=== PATIENT | male | born 1940 | race Caucasian/White ===

== ENCOUNTER → 2016-11-05 | Outpatient (CLI) | payer OTHER ==
[~2016-11-05] MED LIST: ACET-1256 PO; AMOX500C3 PO; ASPI81TA28 PO; ATOR-24 PO; CEPH-571 PO; CEPH500C PO; CIPR1TAB11 PO; CLOP1TAB5 PO; DOCU100C31 PO; HEPA1INJ22 SC; INSPMPNVLG; LINE1TAB2 PO; MULT-506 PO; NICO7DIS7 TD; OXYC-57 PO; OXYSR/10; PANT40TA PO; QUET1TAB30 PO
--- NOTE | 2016-11-05 17:32 | DIAGNOSTIC IMAGING REPORT ---
LEFT ANKLE 3 VIEWS CLINICAL HISTORY: Left ankle pain. Nonhealing wound. FINDINGS: 3 views of left ankle are obtained. No prior studies are available for comparison at the time of dictation. The skeletal structures are osteopenic. No fracture is seen. There is no evidence of bony erosion or periostitis. The ankle mortise is intact. No joint effusion is identified. A tiny plantar calcaneal enthesophyte is observed. There is significant soft tissue edema in the visualized left lower extremity, greatest in the pretibial soft tissues. A cutaneous defect is noted in the anterior calf, likely corresponding to the reported wound. No radiodense foreign body or subcutaneous emphysema is noted. IMPRESSION: 1. No acute bony abnormality is identified in the left ankle. 2. Osteopenia and mild degenerative change as above. 3. Soft tissue edema is noted in the left lower extremity. A wound is suggested in the pretibial soft tissues. Clinical correlation will be required. Electronically signed by: Luigi Munoz M.D. 11/05/2016 5:30 PM Dictated Date/Time: 11/05/2016 5:28 PM
== END | disposition home or self-care (01) ==
LOC: C.RAD 16:53
PROVIDERS: ATTEND Emergency Medicine
DX: M25.572 Pain in left ankle and joints of left foot (principal); S91.002A Unspecified open wound, left ankle, initial encounter; X58.XXXA Exposure to other specified factors, initial encounter

== ENCOUNTER 2016-12-25 11:07 | Emergency (ER) | payer OTHER ==
[~2016-12-25] VITALS: Ht 182.9 cm; Wt 59.1 kg
[~2016-12-25 11:07] MED LIST changes: -AMOX500C3 PO; -CEPH-571 PO; -CEPH500C PO; -CIPR1TAB11 PO; -LINE1TAB2 PO; -QUET1TAB30 PO
[2016-12-25 11:16] VITALS: TEMP 36.5; Ht 182.9 cm; Wt 59.1 kg
[2016-12-25] MEDS ORDERED: QUET1TAB30 PO (12:01)
[2016-12-25 13:50] VITALS: BP 117/80; PULSE 84; O2SAT 95
--- NOTE | 2016-12-25 20:11 | EMERGENCY ROOM VISIT NOTE ---
History Report prepared by Ambreen: Jomar Chao Under the Supervision of: Dr. Jacobo Hernández M.D. First contact with patient: 12:39 Chief Complaint: OTHER COMPLAINT Stated Complaint: LEG PAIN History of Present Illness The patient is a 76 year old male who presents to the Emergency Room with complaints of a traumatic brain injury beginning 30 years ago. The patient's power of document review attorney notes the nurse at his rehabilitation center stated the patient was disoriented. She states that the patient did not want the nurse to touch his hip. His power of document review attorney notes that the nurse called the ambulance because she was not familiar with his case. She notes that he has been fine all day, and he is able to complete simple tasks by himself. His power of document review attorney states that he is recovering from a skin graft that was performed because the patient did not have enough blood supply to his legs. She feels that he is acting completely normal at this point time. Pt denies LOC, headache, fevers, chills, diaphoresis, visual changes, neck pain, chest pain, breathing difficulties, nausea, vomiting, abdominal pain, back pain, melena, hematochezia , urinary symptoms, or other complaints. Source of History: other (power of document review attorney) Onset: 30 years ago Position: head (brain) Quality: other (traumatic) Timing: constant Review of Systems See HPI for pertinent positives and negatives. A total of ten systems were reviewed and were otherwise negative although complete ROS is somewhat difficult to assess as the patient does have baseline TBI and confusion. Past Medical & Surgical Medical Problems: (1) PVD (peripheral vascular disease) (2) TBI (traumatic brain injury) Family History No pertinent family history stated. Social History Smoking Status: Current Some Day Smoker Drug Use: none Marital Status: Occupation Status: disabled Current/Historical Medications Scheduled Acetaminophen (Tylenol), 2 TAB PO Q6 Aspirin (Aspirin Ec), 81 MG PO DAILY Atorvastatin (Lipitor), 1 TAB PO DAILY Clopidogrel Bisulfate (Plavix), 1 TAB PO DAILY Docusate Sodium (Docusate Sodium), 1 CAP PO BID Heparin Sodium (Porcine) (Heparin Sodium), 5,000 SC Q8 Insulin Aspart (novoLOG INSULIN PUMP ), 1 EA N/A UD Multivitamin (Multivitamin), 1 TAB PO DAILY Nicotine (Nicoderm Cq 7 Mg Patch), 7 MG TD DAILY Pantoprazole (Protonix), 40 MG PO DAILY Scheduled PRN Oxycodone/Acetaminophen 5MG/325MG (Percocet 5MG/325MG), 1 TABLET PO Q4H PRN for Pain Miscellaneous Medications Oxycodone HCl (Oxycontin) Quetiapine Fumarate (Seroquel), 25 MG PO Allergies Coded Allergies: No Known Allergies (Verified , 12/25/16) Physical Exam Vital Signs Date Time Temp Pulse Resp B/P Pulse Ox O2 Delivery O2 Flow Rate FiO2 12/25/16 13:50 84 20 117/80 95 Room Air 12/25/16 11:16 36.5 75 20 119/78 95 Room Air Physical Exam GENERAL: Awake, alert, interacting, well-appearing, in no acute distress HENT: Normocephalic, atraumatic. Oropharynx unremarkable. EYES: Normal conjunctiva. Sclera non-icteric. NECK: Supple. No nuchal rigidity. FROM. No JVD. RESPIRATORY: Clear to auscultation. CARDIAC: Regular rate, normal rhythm. Extremities warm and well perfused. Pulses equal. ABDOMEN: Soft, non-distended. No tenderness to palpation. No rebound or guarding. No masses. RECTAL: Deferred. MUSCULOSKELETAL: Chest examination reveals no tenderness. The back is symmetrical on inspection without obvious abnormality. There is no CVA tenderness to palpation. No joint edema. LOWER EXTREMITIES: Calves are equal size bilaterally and non-tender. No edema. No discoloration. NEURO: Normal sensorium. No sensory or motor deficits noted. SKIN: No rash or jaundice noted. Medical Decision & Procedures ED Course 1242: The patient was evaluated in room B9. A complete history and physical exam was performed. 1253: I discussed the patient's case with case management. 1330: I reevaluated the patient and discussed his exam findings. His power of document review attorney verbalized complete understanding of the discharge instructions. The patient is ready for discharge. Medical Decision The patient was evaluated. His power of document review attorney states that he is acting his normal baseline. The visiting nurse was concerned because the patient was alone. The power of document review attorney states that they have permission to allow the patient to be alone for short periods of time. The patient is resting comfortably. Office of aging was contacted. They note no significant issues at this point in time. As the patient seems to be at his baseline per his power of document review attorney and has multiple appointment set for this week with his outpatient providers I believe it is reasonable to let him go and continue his current outpatient care without any diagnostic testing here.I gave my usual and customary discussion regarding this issue. If he has any problems he will come back to the emergency from for reevaluation. Impression Primary Impression: Confusion Scribe Attestation The scribe's documentation has been prepared under my direction and personally reviewed by me in its entirety. I confirm that the note above accurately reflects all work, treatment, procedures, and medical decision making performed by me. Departure Information Dispostion Home / Self-Care Referrals Blaise Welch D.O. (PCP) Forms HOME CARE DOCUMENTATION FORM, IMPORTANT VISIT INFORMATION, WORK / SCHOOL INSTRUCTIONS Patient Instructions My [facility] Additional Instructions Continue current care and medications. Continue set appointments. Follow-up with PCP as scheduled. Return to the emergency Department for any problems.
[2017-01-13] MEDS ORDERED: CEPH-571 PO (08:00)
[2017-02-13] MEDS ORDERED: LINE1TAB2 PO (13:18)
[2017-04-15] MEDS ORDERED: AMOX500C3 PO (11:03)
[2017-06-09] MEDS ORDERED: CEPH500C PO (09:46)
== END 2016-12-25 13:52 | disposition home or self-care (01) ==
LOC: EDBD 11:07 → C.EDB 11:09
DX: R41.0 Disorientation, unspecified (principal); I73.9 Peripheral vascular disease, unspecified; F17.200 Nicotine dependence, unspecified, uncomplicated; Z87.820 Personal history of traumatic brain injury; Z79.82 Long term (current) use of aspirin; Z79.4 Long term (current) use of insulin; Z79.899 Other long term (current) drug therapy

== ENCOUNTER 2019-01-01 13:08 | Inpatient (IN) ==
--- OUTSIDE RECORDS SUMMARY | 2019-01-01 13:12 | External Medical Summary | Continuity of Care Document ---
:1940 Author Name Margareth Diaz, Provider Address Unavailable Unavailable , Care Team Providers Name Role Phone Adam [email or web address] PCP, UNKNOWN Unavailable Unavailable Problems Acquired Deformity Of A Limb (736.9) Allergies and Adverse Reactions No Known Drug Allergies (Allergy) Medications No Reported Medications Refills: 0 Procedures History of Inguinal Hernia Repair Status : Completed 24-Jan-1999 0:00 History of Hernia Repair Status: Complet ed Immunizations Influenza On: 26-Jun-2000 Plan of Treatment Planned Observations Planned Goals not documented Results No Known Results Results not documented
--- NOTE | 2019-01-01 14:08 | XRay Report ---
XR tibia fibula LT 2V HISTORY: 78 years-old Male L leg wound soft tissue wound of the left lower leg COMPARISON: Left ankle radiographs 11/05/2016 TECHNIQUE: 2 views of the left tibia and fibula FINDINGS: Demineralized appearance of the bones. No acute fracture or dislocation. Severe degenerative changes about the knee with moderate posterior arthritis of the tibiotalar joint. Cortical thickening of the proximal tibial metaphysis suggests healed fracture deformity. Indeterminate 3.8 x 2.1 cm sclerotic l esion of the mid proximal tibial metaphysis. No associated soft tissue mass or bony destruction ident ified. There is moderate soft tissue prominence about the lower leg. No opaque foreign body. IMPRESSION: 1. No acute fracture or dislocation. 2. Degenerative changes of the knee and ankle. 3. Healed remote fracture deformity about the proximal tibial metaphysis with indeterminate 3.8 x 2.1 cm sclerotic bone lesion. 4. Moderate soft tissue swelling. The above report was generated using voice recognition software. It may contain grammatical, syntax o r spelling errors. Electronically signed by: Johny Nails M.D. 01/01/2019 2:07 PM
[2019-01-01 14:18] LABS: Basophils # (auto) 0.05 K/uL (0-0.2); Basophils % (auto) 0.7 %; Eosinophils # (auto) 0.37 K/uL (0-0.5); Eosinophils % (auto) 4.9 %; Hemoglobin 12.9 g/dL (14.0-18.0); Immature Granulocytes # (auto) 0.02 K/uL (0.00-0.02); Immature Granulocytes % (auto) 0.3 %; Lymphocytes # (auto) 2.12 K/uL (1.2-3.4); Mean Corpuscular Hgb Conc 34.9 g/dL (32-36); Mean Corpuscular Volume 89.2 fL (80-100); Mean Platelet Volume 9.4 fL (7.4-10.4); Monocytes # (auto) 0.66 K/uL (0.11-0.59); Monocytes % (auto) 8.7 %; Neutrophils # (auto) 4.36 K/uL (1.4-6.5); Neutrophils % (auto) 57.4 %; Platelet Count 184 K/uL (130-400); RDW Coefficient of Variation 14.4 % (11.5-14.5); RDW Standard Deviation 47.1 fL (36.4-46.3); Red Blood Count 4.15 M/uL (4.7-6.1); White Blood Count 7.58 K/uL (4.8-10.8)
[2019-01-01] MEDS ORDERED: PIPERACILL/TAZOBAC CONSULT ACTIVE PRN (14:25)
[2019-01-01] MEDS ORDERED: PIPERACILLIN/TAZOBACTAM 4.5 GM/120 ML BAG IV ONE (14:25)
[2019-01-01] MEDS ORDERED: VANCOMYCIN CONSULT ACTIVE PRN (14:25)
[2019-01-01] MEDS ORDERED: VANCOMYCIN HCL 1,250 MG in SODIUM CHLORIDE 0.9% 500 ML IV ONE (14:25)
--- NOTE | 2019-01-01 14:29 | Emergency Department Note ---
History of Present Illness General Chief complaint: Infection, Wound Time Seen by Provider: 01/01/19 13:26 History of Present Illness 78-year-old male who presents to the emergency department via BLS ambulance for evaluation of a left leg wound. According to EMS, they were contacted by the Office of Aging from a home visit where they found the patient in a home without any food or medications. They then noticed that the patient had a large wound on his left leg with toilet paper stuck to it. They reported a bad odor from the wound as well. EMS was able to find some documentation in the home that he has followed with BRANDYN Colunga. It was also determined that the patient goes to the [facility] clinic for local care. We were also provided a point of contact for the patient's daughter, Miranda Elias ([phone]) who is power of title attorney. Upon further questioning, the patient does not know why he is here. He is a poor historian and does not provide any additional useful information regarding his state of health or prior history. Home Medications Home Medications Medication Instructions Recorded Confirmed Type acetaminophen 500 mg capsule 500 mg PO Q6H PRN cap 04/09/18 01/01/19 History atorvastatin 40 mg tablet 40 mg PO DAILY 04/09/18 01/01/19 History clopidogrel 75 mg tablet 75 mg PO DAILY 04/09/18 01/01/19 History Allergies Allergy/AdvReac Type Severity Reaction Status Date / Time No Known Allergies Allergy Unknown Verified 01/01/19 14:01 Past Med/Surg History Medical History Peripheral arterial disease (Chronic) S/p Left external iliac stenting by Dr. Monsalve at [facility] in August 2016. Left STUDENT FINANCE ADVISOR to CLINICAL APPLICATION CONSULTANT bypass graft [place] [address] Cheung. Left external iliac angioplasty and L CLINICAL APPLICATION CONSULTANT by Dr. Cheung again in Sep 2018. Dementia (Chronic) TBI (traumatic brain injury) (Chronic) PVD (peripheral vascular disease) (Chronic) Surgical History H/O knee surgery (Resolved) Previous back surgery (Resolved) S/P appendectomy (Resolved) Family History Other Family history unknown Social History Preferred Language: Emirati Communication Ability: Effective Visual Impairment: No Limitations Hearing Ability: Normal Beliefs That Will Affect Care: None marital status: / current occupational status: retired Feels Safe at Home: Yes Smoking Status: Current every day smoker Hx Alcohol Use: No Hx Substance Use: No Review of Systems Review of systems cannot be performed because of the patient's dementia Physical Exam Vital Signs Vital Signs - 24 hr 01/01/19 13:19 01/01/19 16:00 01/01/19 16:30 Temperature 37 C Temperature Source Oral Sepsis Recent Fever Within 48 Hours No Sepsis Action Taken by Nursing No Action Required Pulse Rate 87 Pulse Rate [Right Finger] 77 92 H Respiratory Rate 20 20 20 Blood Pressure 115/60 Blood Pressure [Right Arm] 137/69 123/98 Blood Pressure Mean 78 Blood Pressure Mean [Right Arm] 91 106 Pulse Oximetry 95 96 96 Oxygen Delivery Method Room Air Room Air Room Air CONSTITUTIONAL: Unkempt appearing male. He does not appear in any acute distress. HEENT: Normocephalic, atraumatic. Pupils equal, round and reactive. No scleral icterus or conjunctival injection. NECK: The patient is exhibiting full active range of motion without discomfort. RESPIRATORY: Clear to auscultation bilaterally with no wheezing, crackles, rhonchi or stridor. CARDIOVASCULAR: Regular rate and rhythm with no murmurs, rubs or gallops. GASTROINTESTINAL: Soft and nontender to palpation.. MUSCULOSKELETAL: Full musculoskeletal exam was limited because of patient intolerance. Pedal pulses are grossly intact. INTEGUMENTARY: Examination shows a large ulcer on the left anterior leg. Proteinaceous and purulent discharge is noted. The patient does have overriding erythema of the entire anterior leg region. HEMATOLOGIC: No ecchymosis or petechiae. PSYCHIATRIC: Patient cannot focus on medical examination, and engages in small t alk and jesting. NEUROLOGIC: No focal neurologic deficits noted. Course Patient history and physical exam were performed, although somewhat limited given the patient's dementia. Initially I spent approximately 45 minutes trying to collect patient history through medical records, as well as through a conversation with Dr. Su [facility] where Vilma Suarez works. Dr. Su was able to go back through their medical records, showing that the patient was last seen in their office on 10/23/2018. He has had prior staph and Pseudomonas infections, and has also required infectious disease follow-up with Dr. Menjivar. She was also able to view outside resources showing that the patient underwent revascularization procedure at the [facility] in [place] in September 2016. The patient has had no further follow-up in their office since 2 months ago as indicated previously. She is also aware of his complex social situation, and suggested that the patient will likely require admission for further wound care and manager social work consultation. I also discussed the case further with our Elephant Keeper, who also has been discussing the case with the Office of Aging. Both the caseworker protective services and myself have tried multiple times to contact the power of title attorney without success. IV access was established, and labs were drawn. The patient denied any pain while in the emergency department. Review of labs does not show any stephanie kocytosis, left shift or bandemia. CMP does show a mildly elevated alkaline phosphatase, but LFTs and bilirubin are normal. Electrolytes are also grossly normal with a normal creatinine. Wound cultures of the leg were collected. Venous ultrasound of the left lower extremity was normal, and x-rays did not show evidence for underlying fracture or osteomyelitis. The case was then further discussed with our pharmacist, who reviewed prior wound cultures, and recommended IV Zosyn and vancomycin which was administered. The case was also further discussed further with Dr. Wilks, ED attending jonas ness, who evaluated the patient and agrees with work-up and hospitalist consultation. The case was then discussed with the [facility] Hospitalist service, who did come to the emergency department for further evaluation. Please see their dictation for further treatment and final disposition. Administered Medications Discontinued Medications Piperacillin Sod/Tazobactam Sod (Zosyn) 4.5 gm in 120 mls @ 240 mls/hr IV NOW ONE Stop: 01/01/19 14:54 Last Infusion: 01/01/19 15:20 Dose: 0 mls/hr Documented by: [id number] Admin: 01/01/19 14:50 Dose: 240 mls/hr Documented by: [id number] Vancomycin HCl 1,250 mg/ (Sodium Chloride) 525 mls @ 200 mls/hr IV NOW ONE; Protocol Stop: 01/01/19 17:02 Last Admin: 01/01/19 16:02 Dose: 200 mls/hr Documented by: [id number] Medical Decision Making Medical Records Attestation: I reviewed the patient's medical records. Home Medications Current Medication List: was personally reviewed by me Laboratory Data Attestation: I reviewed the patient's lab results. Result diagrams: 01/01/19 14:11 01/01/19 14:11 Lab Results 01/01/19 01/01/19 01/01/19 Range/Units 14:11 14:11 14:17 WBC 7.58 (4.8-10.8) K/uL RBC 4.15 L (4.7-6.1) M/uL Hgb 12.9 L (14.0-18.0) g/dL Hct 37.0 L (42-52) % MCV 89.2 (80-100) fL MCH 31.1 (25-34) pg MCHC 34.9 (32-36) g/dL RDW Std Deviation 47.1 H (36.4-46.3) fL RDW Coeff of Reina 14.4 (11.5-14.5) % Plt Count 184 (130-400) K/uL MPV 9.4 (7.4-10.4) fL Immature Gran % (Auto) 0.3 % Neut % (Auto) 57.4 % Lymph % (Auto) 28.0 % Hopkins % (Auto) 8.7 % Eos % (Auto) 4.9 % Baso % (Auto) 0.7 % Immature Gran # (Auto) 0.02 (0.00-0.02) K/uL Neut # (Auto) 4.36 (1.4-6.5) K/uL Lymph # (Auto) 2.12 (1.2-3.4) K/uL Hopkins # (Auto) 0.66 H (0.11-0.59) K/uL Eos # (Auto) 0.37 (0-0.5) K/uL Baso # (Auto) 0.05 (0-0.2) K/uL Sodium 143 (136-145) mmol/L Potassium 4.2 (3.5-5.1) mmol/L Chloride 110 H (98-107) mmol/L Carbon Dioxide 28 (21-32) mmol/L Anion Gap 5.0 (3-11) BUN 20 H (7-18) mg/dl Creatinine 0.91 (0.6-1.4) mg/dl Est Cr Clr Drug Dosing 62.3 ml/min Est GFR ( Amer) 93.2 Est GFR (Non-Af Amer) 80.4 BUN/Creatinine Ratio 22.4 H (10-20) Glucose 65 L (70-99) mg/dl POC Lactic Acid Gustavo 1.16 (0.90-1.70) mmol/L Calcium 9.3 (8.5-10.1) mg/dl Total Bilirubin 0.3 (0.2-1) mg/dl AST 17 (15-37) U/L ALT 24 (12-78) U/L Alkaline Phosphatase 182 H (45-117) U/L Total Protein 7.0 (6.4-8.2) gm/dl Albumin 3.3 L (3.4-5.0) gm/dl Globulin 3.7 (2.5-4.0) gm/dl Albumin/Globulin Ratio 0.9 (0.9-2) Imaging Data Attestation: I personally reviewed and interpreted this imaging study as follows: My Impression: My interpretation of left tib-fib x-rays does not show any acute bony lesions, evidence for osteomyelitis or fractures. Radiologist report was reviewed. Venous ultrasound of the left lower extremity does not show any evidence for underlying deep vein thrombosis. Radiologist's Impression: XR tibia fibula LT 2V HISTORY: 78 years-old Male L leg wound soft tissue wound of the left lower leg COMPARISON: Left ankle radiographs 11/05/2016 TECHNIQUE: 2 views of the left tibia and fibula FINDINGS: Demineralized appearance of the bones. No acute fracture or dislocation. Severe degenerative changes about the knee with moderate posterior arthritis of the tibiotalar joint. Cortical thickening of the proximal tibial metaphysis suggests healed fracture deformity. Indeterminate 3.8 x 2.1 cm sclerotic lesion of the mid proximal tibial metaphysis. No associated soft tissue mass or bony destruction identified. There is moderate soft tissue prominence about the lower leg. No opaque foreign body. IMPRESSION: 1. No acute fracture or dislocation. 2. Degenerative changes of the knee and ankle. 3. Healed remote fracture deformity about the proximal tibial metaphysis with indeterminate 3.8 x 2.1 cm sclerotic bone lesion. 4. Moderate soft tissue swelling. US venous doppler LE LT HISTORY: 78 years-old Male LLE wound acute left lower extremity pain COMPARISON: Left tibia and fibula radiographs of same day TECHNIQUE: Multiple real-time sonographic images of the left lower extremity deep venous structures were obtained assessing grayscale appearance, color and spectral flow FINDINGS: Normal flow, compressibility, phasicity and augmentation of the left lower extremity venous structures. Study is mildly limited secondary to overlying subcutaneous edema. IMPRESSION: No sonographic evidence of deep venous thrombosis. Blood Pressure Blood Pressure Findings: Normal blood pressure MDM Narrative Patient has a history of arterial ulcer to the leg, and appears to now have a worsening wound. According to the [facility], the patient had revascularization in September 2016 at the [facility] in [place]. The patient currently has intact pedal pulses. Ultrasound does not show evidence for underlying deep vein thrombosis, and x-ray does not show evidence for osteomyelitis. Impression & Plan Arterial leg ulcer, PVD (peripheral vascular disease) Discharge Plan Visit Data *Final* Discharge Date/Time: 01/01/19 18:20 Chief Complaint: Infection, Wound ED Provider: Denis Wilks ED Midlevel Provider: Bakari Dia Discharge Problem: Arterial leg ulcer, PVD (peripheral vascular disease) Patient Disposition: Admitted As Inpatient Discharge Instructions Interventions: ED Discharge Assessment Last Done: 01/01/19 18:20
[2019-01-01 14:38] LABS: Albumin Level 3.3 gm/dl (3.4-5.0); BUN Creatinine Ratio 22.4 (10-20); Calcium 9.3 mg/dl (8.5-10.1); Creatinine Clr Calc Pharmacy 62.3 ml/min; Est GFR (African American) 93.2; Est GFR (Non-African American) 80.4; Potassium 4.2 mmol/L (3.5-5.1)
--- NOTE | 2019-01-01 14:39 | History & Physical Report ---
Date of Service January 01, 2019 History of Present Illness Primary Care Provider: BRANDYN Ramires This is a 78 yo M with PMHx of PAD, chronic arterial leg ulceration Allergies Allergy/AdvReac Type Severity Reaction Status Date / Time No Known Allergies Allergy Unknown Verified 01/01/19 14:01 Home Medications Home Medications Medication Instructions Recorded Confirmed Type acetaminophen 500 mg capsule 500 mg PO Q6H PRN cap 04/09/18 01/01/19 History atorvastatin 40 mg tablet 40 mg PO DAILY 04/09/18 01/01/19 History clopidogrel 75 mg tablet 75 mg PO DAILY 04/09/18 01/01/19 History Past Med/Surg History Social History Preferred Language: Georgian Communication Ability: Effective Visual Impairment: No Limitations Hearing Ability: Normal Beliefs That Will Affect Care: None Feels Safe at Home: Yes Smoking Status: Current every day smoker Hx Alcohol Use: No Hx Substance Use: No Results & Data Vital Signs (Past 12 Hours) Vital Signs Temp Pulse Resp BP Pulse Ox 01/01/19 13:19 37 C 87 20 115/60 95 Diagnostic Findings XR tibia fibula LT 2V HISTORY: 78 years-old Male L leg wound soft tissue wound of the left lower leg COMPARISON: Left ankle radiographs 11/05/2016 TECHNIQUE: 2 views of the left tibia and fibula FINDINGS: Demineralized appearance of the bones. No acute fracture or dislocation. Severe degenerative changes about the knee with moderate posterior arthritis of the tibiotalar joint. Cortical thickening of the proximal tibial metaphysis suggests healed fracture deformity. Indeterminate 3.8 x 2.1 cm sclerotic lesion of the mid proximal tibial metaphysis. No associated soft tissue mass or bony destruction identified. There is moderate soft tissue prominence about the lower leg. No opaque foreign body. IMPRESSION: 1. No acute fracture or dislocation. 2. Degenerative changes of the knee and ankle. 3. Healed remote fracture deformity about the proximal tibial metaphysis with indeterminate 3.8 x 2.1 cm sclerotic bone lesion. 4. Moderate soft tissue swelling.
[2019-01-01 14:41] LABS: Albumin Globulin Ratio 0.9 (0.9-2); Bilirubin,Total 0.3 mg/dl (0.2-1); Globulin 3.7 gm/dl (2.5-4.0)
--- NOTE | 2019-01-01 15:55 | Ultrasound Report ---
US venous doppler LE LT HISTORY: 78 years-old Male LLE wound acute left lower extremity pain COMPARISON: Left tibia and fibula radiographs of same day TECHNIQUE: Multiple real-time sonographic images of the left lower extremity deep venous structures w ere obtained assessing grayscale appearance, color and spectral flow FINDINGS: Normal flow, compressibility, phasicity and augmentation of the left lower extremity venous structure s. Study is mildly limited secondary to overlying subcutaneous edema. IMPRESSION: No sonographic evidence of deep venous thrombosis. The above report was generated using voice recognition software. It may contain grammatical, syntax o r spelling errors. Electronically signed by: Johny Nails M.D. 01/01/2019 3:54 PM
--- NOTE | 2019-01-01 17:17 | Emergency Department Note ---
Entered by Karlee Corey acting as a scribe for Denis Wilks MD ED Visit Note The patient was seen and examined by myself in conjunction with the advanced care provider Bakari Dia PA-C. I agree with the history, physical and findings as documented. Please see the note for disposition and details. . The scribe's documentation has been prepared under my direction and personally reviewed by me in its entirety. I confirm that the note above accurately reflects all work, treatment, procedures, and medical decision making performed by me.
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
--- NOTE | 2019-01-01 20:18 | Ultrasound Report ---
US arterial duplex LE LT HISTORY: Left leg wound, PAD with recent revasc COMPARISON STUDY: None. FINDINGS: The ankle brachial indices were unable to be obtained due to open wound on ankle. Elevated peak systolic velocity within the left common femoral artery of 286 cm/s consistent with stenosis. Mo nophasic waveforms seen throughout the left lower extremity arterial system. The majority of the left superficial femoral artery and the proximal popliteal artery are occluded. There is a bypass graft w ithin the left thigh which appears to extend from the superficial femoral artery to the popliteal art reyna. This is patent and demonstrates normal velocities. There is reversal of flow within the distal l eft posterior tibial artery. Only a small focal or flow identified within the dorsalis pedis artery. The anterior tibial and peroneal arteries are patent. IMPRESSION: 1. Patent left femoropopliteal graft. The [place] superficial femoral artery and proximal popliteal ar del[place] are occluded. 2. Focal area of hemodynamically significant stenosis within the left common femoral artery. 3. Reversal of flow within the distal posterior tibial artery. Electronically signed by: Giovanny Leon M.D. 01/01/2019 8:16 PM
[2019-01-01] MEDS ORDERED: POLYETHYLENE (MIRALAX) 17 GM PACK PO PRN (21:37)
[2019-01-01] MEDS: PIPERACILLIN/TAZOBACTAM 3.375 GM in DEXTROSE 5% 100 ML IV SCH (23:40)
[2019-01-02] MEDS: ACETAMINOPHEN 500 MG TAB PO PRN (00:41)
[2019-01-02] MEDS ORDERED: VANCOMYCIN HCL 1,000 MG in SODIUM CHLORIDE 0.9% 250 ML IV SCH (04:00)
[2019-01-02] MEDS ORDERED: PNEUMOCOCCAL ADMINISTRATION CHARGE ONE (04:45)
[2019-01-02] MEDS ORDERED: PNEUMOCOCCAL POLYSACCHARIDES 25 MCG/0.5 ML VIAL/SYR IM ONE (04:45)
[2019-01-02 06:06] LABS: Hematocrit (blood only) 37.4 % (42-52); Hemoglobin 12.4 g/dL (14.0-18.0); Mean Corpuscular Hgb Conc 33.2 g/dL (32-36); Mean Corpuscular Volume 90.3 fL (80-100); Mean Platelet Volume 9.9 fL (7.4-10.4); Platelet Count 169 K/uL (130-400); RDW Coefficient of Variation 14.5 % (11.5-14.5); Red Blood Count 4.14 M/uL (4.7-6.1); White Blood Count 7.12 K/uL (4.8-10.8)
[2019-01-02] MEDS: PIPERACILLIN/TAZOBACTAM 3.375 GM in DEXTROSE 5% 100 ML IV SCH ×3 (06:15→23:35)
[2019-01-02 06:45] LABS: BUN Creatinine Ratio 20.4 (10-20); Calcium 9.1 mg/dl (8.5-10.1); Creatinine Clr Calc Pharmacy 51.3 ml/min; Est GFR (African American) 81.2; Est GFR (Non-African American) 70.1; Potassium 4.6 mmol/L (3.5-5.1)
--- NOTE | 2019-01-02 08:00 | Infectious Disease Consult ---
Date of Consultation January 02, 2019 Assessment & Plan (1) Arterial leg ulcer: will continue emperic abx, follow culture results. may require biopsy of bone lesion as well. check esr. History of Present Illness Attending Physician: Jose Bridges MD pt admitted after aging and adult visit. noted worsening wound lle. was [facility], no visits reported since October. Pt has dementia, history obtained from chart. no fevers. denies pain in leg. unable to answer questions about previous treatment, only repeats, "it's cancer, no its not". wound culture obtained, pending. started on vanco and zosyn, tolerating well. h/o MSSA and pseudomonas in 09/2018, treated with abx at that time. denies abd pain, n/v/d, no cp, sob. wbc nml. x ray showing bone lesion measuring 3.8x1.2cm. denies pain Allergies Allergy/AdvReac Type Severity Reaction Status Date / Time No Known Allergies Allergy Unknown Verified 01/01/19 14:01 Home Medications Home Medications Medication Instructions Recorded Confirmed Type acetaminophen 500 mg capsule 500 mg PO Q6H PRN cap 04/09/18 01/01/19 History atorvastatin 40 mg tablet 40 mg PO DAILY 04/09/18 01/01/19 History clopidogrel 75 mg tablet 75 mg PO DAILY 04/09/18 01/01/19 History Patient History Medical History Peripheral arterial disease (Chronic) S/p Left external iliac stenting by Dr. Monsalve at [facility] in August 2016. Left [employer] WORKER to AIRPORT DRIVER bypass graft in November [address] Cheung. Left external iliac angioplasty and L AIRPORT DRIVER by Dr. Cheung again in Sep 2018. Dementia (Chronic) TBI (traumatic brain injury) (Chronic) PVD (peripheral vascular disease) (Chronic) Surgical History H/O knee surgery (Resolved) Previous back surgery (Resolved) S/P appendectomy (Resolved) Family History Other Family history unknown Social History Preferred Language: Mongolian Communication Ability: Effective Visual Impairment: No Limitations Hearing Ability: Normal Beliefs That Will Affect Care: None marital status: / Current Living Situation: Alone Current Living Situation Comment: care givers come in [place] current occupational status: retired Other Information That Helps Us Care for You: No Feels Safe at Home: Yes Safety Concerns: Feels Safe At This Time Smoking Status: Former smoker Hx Alcohol Use: No Hx Substance Use: No Review of Systems Review of Systems: All systems reviewed & are unremarkable except as noted in HPI & below Physical Exam Constitutional: WD/WN, vitals as above Eyes: PERRL, conjunctivae normal, anicteric sclerae ENMT: external ear and nose normal, oropharynx normal Neck: trachea midline, no thyromegaly Respiratory: normal respiratory effort, lungs clear to auscultation Cardiovascular: RRR, no murmur, no edema Gastrointestinal (Abdomen): normal bowel sounds, soft, nontender, no hepatosplenomegaly Musculoskeletal: no cyanosis or clubbing, extremities motor strength 5/5 Skin: no rashes, warm and dry lle wound with slough, foul smelling drainage, no surrounding erythema, warmth Psychiatric: Orientation: alert Affect: + anxious affect Insight: + poor insight Results & Data Vital Signs (Past 12 Hours) Vital Signs Temp Pulse Pulse Resp BP Pulse Ox 01/02/19 07:26 36.5 C 70 20 132/77 95 01/02/19 04:00 36.5 C 69 20 159/98 H 92 01/02/19 00:00 37.0 C 88 20 141/84 H 92 01/01/19 23:40 83 01/01/19 21:56 85 01/01/19 21:00 36.8 C 91 H 20 150/87 H 90
[2019-01-02] MEDS: CLOPIDOGREL BISULFATE 75 MG TAB PO SCH (08:51)
[2019-01-02] MEDS: ATORVASTATIN 40 MG TAB PO SCH (08:51)
[2019-01-02] MEDS: ASPIRIN 81 MG ECTAB PO SCH (10:17)
--- NOTE | 2019-01-02 13:31 | Pharmacy Report ---
Pharmacy Abx Initial Consult - Date of Service January 02, 2019 - Pharmacy Dosing Scope Date of Consult: 01/01/19 Consultation requested by: Radha Rene PA-C Pharmacy is consulted to initiate vancomycin and Zosyn IV dosing therapy, order appropriate labs and adjust drug dose/frequency. - Subjective The patient is a 78 year old M admitted on 01/01/19 17:30. - Objective Height: 5 ft 9 in Weight: 62 kg Vital Signs (Past 12hrs): Vital Signs Temp Pulse Pulse Resp BP Pulse Ox 01/02/19 12:01 36.6 C 73 20 137/75 95 01/02/19 08:34 72 01/02/19 07:26 36.5 C 70 20 132/77 95 01/02/19 04:00 36.5 C 69 20 159/98 H 92 Lab Results (24hrs): Laboratory Tests (24 Hours) 01/02/19 01/02/19 01/02/19 05:53 05:53 05:53 WBC 7.12 Neut # (Auto) ESR 17 H Creatinine 1.02 Est Cr Clr Drug Dosing 51.3 01/01/19 01/01/19 14:11 14:11 WBC 7.58 Neut # (Auto) 4.36 ESR Creatinine 0.91 Est Cr Clr Drug Dosing 62.3 Micro Results: 01/01/19 14:15 Gram Stain - Final Leg - Risk Factors for Resistance 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 Patient has significant peripheral vascular disease (s/p multiple revascularizations). Plan Vancomycin IV * Estimated PK Parameters: Vd 0.7 L/kg, Malcolm 0.046 hr-1, t1/2 14.7 hr * Loading dose: 1250 mg (19 mg/kg) * Maintenance dose: 1000 mg IV (15 mg/kg) every 16 hours * Goal trough level will be 15-20 until osteomyelitis can be rules out * Trough/Random level ordered for 01/03/19 @1130 prior to the 4th dose Piperacillin/tazobactam * 4.5 g bolus administered over 30 minutes, then 3.375 g IV extended infusion every 8 hours for CrCl greater than 20 mL/min * Will follow patient. May need to increase dose to 4.5 g if not responding due to limited perfusion with PAD Pharmacy will continue to follow and will adjust dose/frequency as necessary. Thank you.
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
[2019-01-02] MEDS: VANCOMYCIN HCL 1,000 MG in SODIUM CHLORIDE 0.9% 250 ML IV SCH (20:55)
[2019-01-03] MEDS: PIPERACILLIN/TAZOBACTAM 3.375 GM in DEXTROSE 5% 100 ML IV SCH ×2 (06:36→14:26)
[2019-01-03 07:33] LABS: Hematocrit (blood only) 39.6 % (42-52); Hemoglobin 13.3 g/dL (14.0-18.0); Mean Corpuscular Hgb Conc 33.6 g/dL (32-36); Mean Corpuscular Volume 89.8 fL (80-100); Mean Platelet Volume 9.6 fL (7.4-10.4); Platelet Count 168 K/uL (130-400); RDW Coefficient of Variation 14.3 % (11.5-14.5); RDW Standard Deviation 47.2 fL (36.4-46.3); Red Blood Count 4.41 M/uL (4.7-6.1); White Blood Count 6.49 K/uL (4.8-10.8)
[2019-01-03 08:05] LABS: BUN Creatinine Ratio 19.8 (10-20); Calcium 9.5 mg/dl (8.5-10.1); Creatinine Clr Calc Pharmacy 54.2 ml/min; Est GFR (African American) 83.2; Est GFR (Non-African American) 71.8; Potassium 4.2 mmol/L (3.5-5.1)
--- NOTE | 2019-01-03 08:18 | Infectious Disease Progress Nt ---
Date of Service January 03, 2019 Assessment & Plan (1) Arterial leg ulcer: will continue emperic abx, follow culture results. may require biopsy of bone lesion as well. check esr. Subjective wound culture with gnr, final pending. tolerating abx. afebrile. Results & Data Vital Signs (Past 12 Hours) Vital Signs Temp Pulse Pulse Resp BP BP Pulse Ox 01/03/19 08:01 75 18 148/67 H 93 01/03/19 04:23 36.4 C L 70 18 124/76 94 01/03/19 00:00 36.9 C 83 20 157/81 H 93 01/02/19 23:10 84 Laboratory Results Microbiology 01/01/19 14:15 Leg Gram Stain - Final 01/01/19 14:15 Leg Wound Culture - Preliminary Gram negative bacilli
[2019-01-03] MEDS: ATORVASTATIN 40 MG TAB PO SCH (08:58)
[2019-01-03] MEDS: CLOPIDOGREL BISULFATE 75 MG TAB PO SCH (08:58)
[2019-01-03] MEDS: ASPIRIN 81 MG ECTAB PO SCH (08:58)
[2019-01-03] MEDS ORDERED: VANCOMYCIN TROUGH ONE (11:30)
[2019-01-03] MEDS: VANCOMYCIN HCL 1,000 MG in SODIUM CHLORIDE 0.9% 250 ML IV SCH (12:36)
--- NOTE | 2019-01-03 15:03 | Pharmacy Report ---
Pharmacy Abx Dose Short Note - Date of Service January 03, 2019 - Assessment & Plan Assessment 78 year old M receiving empiric vancomycin and Zosyn for empiric treatment of a LLE wound. Patient has significant peripheral vascular disease (s/p multiple revascularizations). Day #3 of therapy Leg wound culture (01/02) growing osorio-sensitive Pseudomonas aeruginosa and Staphylococcus species Patient remains afebrile with a steady WBC count around 7 Plan Vancomycin * Trough level of 10.2 mcg/mL is adequate for skin soft tissue, but will target closer to 15-20 until osteomyelitis can be ruled out (ESR of 17) * Continue dose of 1000 mg IV, but will change to every 12 hour dosing schedule in effort to increase trough * Will obtain follow-up trough once new dose is at steady-state Piperacillin/tazobactam * 4.5 g bolus administered over 30 minutes, then 3.375 g IV extended infusion every 8 hours for CrCl greater than 20 mL/min * Will follow patient. May need to increase dose to 4.5 g if not responding due to limited perfusion with PAD Current antibiotic regimen appropriate based on cultures. Pharmacy will continue to follow and will adjust dose/frequency as necessary. Thank you.
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
[2019-01-03] MEDS: ACETAMINOPHEN 500 MG TAB PO PRN (20:21)
[2019-01-04] MEDS: PIPERACILLIN/TAZOBACTAM 3.375 GM in DEXTROSE 5% 100 ML IV SCH ×4 (00:18→22:21)
[2019-01-04] MEDS: VANCOMYCIN HCL 1,000 MG in SODIUM CHLORIDE 0.9% 250 ML IV SCH ×2 (00:19→12:10)
[2019-01-04] MEDS: ASPIRIN 81 MG ECTAB PO SCH (07:47)
[2019-01-04] MEDS: CLOPIDOGREL BISULFATE 75 MG TAB PO SCH (07:48)
[2019-01-04] MEDS: ATORVASTATIN 40 MG TAB PO SCH (07:48)
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
[2019-01-05] MEDS: PIPERACILLIN/TAZOBACTAM 3.375 GM in DEXTROSE 5% 100 ML IV SCH (05:19)
[2019-01-05] MEDS: ASPIRIN 81 MG ECTAB PO SCH (08:44)
[2019-01-05] MEDS: ATORVASTATIN 40 MG TAB PO SCH (08:44)
[2019-01-05] MEDS: CLOPIDOGREL BISULFATE 75 MG TAB PO SCH (08:44)
--- NOTE | 2019-01-05 14:01 | Infectious Disease Progress Nt ---
Date of Service January 05, 2019 Assessment & Plan (1) Arterial leg ulcer: will change to po abx, would give 4 weeks. continue local wound care. awaiting placement. Subjective oob to chair, moaning, does not answer questions. remains on IV abx, toleraitng well. afebrile. no am labs. wound culture from 01/01 growing MSSA and osorio sensitive pseudomonas. spoke with primary, looking for placement. Review of Systems Review of Systems: Unobtainable due to cognitive status Physical Exam Constitutional: WD/WN, vitals as above Eyes: PERRL, conjunctivae normal, anicteric sclerae ENMT: external ear and nose normal, oropharynx normal Neck: trachea midline, no thyromegaly Respiratory: normal respiratory effort, lungs clear to auscultation Cardiovascular: RRR, no murmur, no edema Gastrointestinal (Abdomen): normal bowel sounds, soft, nontender, no hepatosplenomegaly Musculoskeletal: no cyanosis or clubbing, extremities motor strength 5/5 Skin: no rashes, warm and dry Psychiatric: Orientation: alert Affect: + anxious affect Insight: + poor insight Results & Data Vital Signs (Past 12 Hours) Vital Signs Temp Pulse Pulse Resp BP BP Pulse Ox 01/05/19 11:19 36.4 C L 72 18 117/74 95 01/05/19 08:00 76 01/05/19 07:23 36.6 C 84 18 126/76 90 Laboratory Results Microbiology 01/01/19 14:15 Leg Gram Stain - Final 01/01/19 14:15 Leg Wound Culture - Final Pseudomonas aeruginosa Staphylococcus aureus
--- NOTE | 2019-01-05 14:15 | Wound Consultation ---
Date of Consultation January 05, 2019 Assessment & Plan (1) Arterial leg ulcer: No debridement needed at this time. Wound bed covered with good granulation tissue. May require chemical cauterization for hyper granulation but this can be done as an outpatient. Wound will be dressed with Aquacel Ag and change every other day. Thank you for allowing me to participate in the care of this patient. Please not hesitate to call with any questions. (2) Peripheral arterial disease: (3) Dementia: History of Present Illness Attending Physician: Jose Bridges MD This is a 78-year-old male with a history of arterial leg ulcer, traumatic brain injury, peripheral vascular disease and dementia who is admitted with cellulitis of his left leg. Patient has not been seen in the wound clinic since October. When office of aging went out to his house found no food or medication. Patient is a poor historian due to his dementia and traumatic brain injury and is unable to provide any history. Allergies Allergy/AdvReac Type Severity Reaction Status Date / Time No Known Allergies Allergy Unknown Verified 01/01/19 14:01 Home Medications Home Medications Medication Instructions Recorded Confirmed Type acetaminophen 500 mg capsule 500 mg PO Q6H PRN cap 04/09/18 01/01/19 History atorvastatin 40 mg tablet 40 mg PO DAILY 04/09/18 01/01/19 History clopidogrel 75 mg tablet 75 mg PO DAILY 04/09/18 01/01/19 History aspirin 81 mg PO DAILY 01/02/19 01/02/19 History Patient History Medical History Peripheral arterial disease (Chronic) S/p Left external iliac stenting by Dr. Monsalve at [facility] in August 2016. Left YEAST CAKE CUTTER to PRESIDENT AND CEO bypass graft in November [address] Cheung. Left external iliac angioplasty and L PRESIDENT AND CEO by Dr. Cheung again in Sep 2018. Dementia (Chronic) TBI (traumatic brain injury) (Chronic) PVD (peripheral vascular disease) (Chronic) Surgical History H/O knee surgery (Resolved) Previous back surgery (Resolved) S/P appendectomy (Resolved) Family History Other Family history unknown Social History (Reviewed 01/02/19 @ 07:58 by SÁNCHEZ Cornejo Preferred Language: Citizen Of [place] Communication Ability: Effective Visual Impairment: No Limitations Hearing Ability: Normal Beliefs That Will Affect Care: None marital status: / Current Living Situation: Alone Current Living Situation Comment: care givers come in [place] current occupational status: retired Other Information That Helps Us Care for You: No Feels Safe at Home: Yes Safety Concerns: Feels Safe At This Time Smoking Status: Former smoker Hx Alcohol Use: No Hx Substance Use: No Review of Systems Review of Systems: All systems reviewed & are unremarkable except as noted in HPI & below Physical Exam Constitutional: WD/WN, vitals as above Eyes: PERRL, conjunctivae normal, anicteric sclerae ENMT: Ears: no hearing impairment Respiratory: normal respiratory effort, lungs clear to auscultation Cardiovascular: RRR, no murmur, no edema Gastrointestinal (Abdomen): normal bowel sounds, soft, nontender, no hepatosplenomegaly Skin: Wound measuring as recorded in nursing documentation. Wound bed covered in good granulation tissue. Periwound is intact without inflammation. Neurologic: awake and + confused Psychiatric: Orientation: oriented to person and cooperative Results & Data Vital Signs (Past 12 Hours) Vital Signs Temp Pulse Pulse Resp BP BP Pulse Ox 01/05/19 11:19 36.4 C L 72 18 117/74 95 01/05/19 08:00 76 01/05/19 07:23 36.6 C 84 18 126/76 90
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
[2019-01-05] MEDS: cephALEXin 500 MG CAP PO SCH (20:06)
[2019-01-05] MEDS: CIPROFLOXACIN 500 MG TAB PO SCH (20:07)
[2019-01-06] MEDS: ACETAMINOPHEN 500 MG TAB PO PRN (06:16)
[2019-01-06 08:13] LABS: Creatinine Clr Calc Pharmacy 51.6 ml/min; Est GFR (African American) 78.4; Est GFR (Non-African American) 67.7
[2019-01-06] MEDS: ASPIRIN 81 MG ECTAB PO SCH (08:14)
[2019-01-06] MEDS: CIPROFLOXACIN 500 MG TAB PO SCH ×2 (08:14→20:58)
[2019-01-06] MEDS: ATORVASTATIN 40 MG TAB PO SCH (08:15)
[2019-01-06] MEDS: CLOPIDOGREL BISULFATE 75 MG TAB PO SCH (08:15)
[2019-01-06] MEDS: cephALEXin 500 MG CAP PO SCH ×2 (08:15→20:58)
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
[2019-01-07] MEDS: CIPROFLOXACIN 500 MG TAB PO SCH (10:33)
[2019-01-07] MEDS: ASPIRIN 81 MG ECTAB PO SCH (10:33)
[2019-01-07] MEDS: ATORVASTATIN 40 MG TAB PO SCH (10:34)
[2019-01-07] MEDS: cephALEXin 500 MG CAP PO SCH (10:34)
[2019-01-07] MEDS: CLOPIDOGREL BISULFATE 75 MG TAB PO SCH (10:34)
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
== END 2019-01-07 15:11 | disposition home health service (06) | DRG 301 ==
LOC: ED 13:08 → 2W 17:30